=== PATIENT | female | born 1995 | race African-American/Black ===

== ENCOUNTER 2020-12-29 09:47 | Emergency (ER) | payer OTHER ==
[2020-12-29 10:51] LABS: BILIRUBIN,URINE NEGATIVE (NEGATIVE); UA COLOR YELLOW
--- NOTE | 2020-12-29 11:31 | ER.PDOC ---
General Chief Complaint: Requesting Medical Care Stated Complaint: NAUSEA Time seen by MD: 11:23 Source: patient Exam Limitations: no limitations History of Present Illness Initial Comments Nausea without vomiting for about 2 weeks. Patient took 2 home tests which came out to be positive. She wants to confirm. No diarrhea. No abdominal cramps. No vagina bleeding. Severity/Quality: moderate Past Medical History Medical History: no pertinent history Surgical History: no surgical history Family History Significant Family History: no pertinent family hx Social History Drug Use: none Constitutional: no symptoms reported Respiratory: no symptoms reported Cardiovascular: no symptoms reported Gastrointestinal: see HPI Genitourinary: no symptoms reported Musculoskeletal: no symptoms reported All Other Systems: Reviewed and Negative Physical Exam General Appearance: No Apparent Distress, WD/WN Neck: Non-Tender, Full Range of Motion, Supple, Normal Inspection Respiratory: chest non-tender, lungs clear, normal breath sounds, no respiratory distress, no accessory muscle use Cardiovascular: Normal Peripheral Pulses, Regular Rate, Rhythm, No Edema, No Gallop, No JVD, No Murmur Gastrointestinal: Normal Bowel Sounds, Non Tender, Soft Back: Normal Inspection, No CVA Tenderness, No Vertebral Tenderness Extremities: Normal Range of Motion, Non-Tender, Normal Inspection, No Pedal Edema, No Calf Tenderness, Normal Capillary Refill, Pelvis Stable 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 NML as Tested, No Motor/Sensory Deficits, Alert, Normal Mood/Affect, Oriented x 3 Skin: Normal Color, Warm/Dry Lymphatic: No Adenopathy Results/Orders Results/Orders Orders - IVELISSE SCHMIDT MD Urinalysis (12/29/20 10:30) Hcg Urine (12/29/20 10:30) Laboratory Tests Test 12/29/20 10:30 Urine Collection Type RANDOM Urine Color YELLOW Urine Appearance CLEAR Urine Bilirubin NEGATIVE (NEGATIVE) Urine Ketones 40 mg/dL (NEGATIVE) H Urine Specific [place] >=1.030 (1.005-1.030) Urine pH 5.5 (4.5-8.0) Urine Protein NEGATIVE (NEGATIVE) Urine Urobilinogen 1.0 E.U./dL (0.2) Urine Nitrate NEGATIVE (NEGATIVE) Urine Leukocyte Esterase NEGATIVE (NEGATIVE) Urine Glucose (Auto)(UA) NEGATIVE (NEGATIVE) Urine Blood TRACE-INTACT (NEGATIVE) H Urine RBC 0-2 RBC/HPF (NONE SEEN) Urine WBC 0-2 WBC/HPF (0-2) Urine Squamous Epithelial Cells MANY #/HPF (FEW) Urine Bacteria NONE SEEN (NONE SEEN) Urine Other 1+ MUCUS #/HPF Urine HCG, Qualitative POSITIVE (NEGATIVE) Progress Progress Patient has ketones in urine most likely from dehydration. I wanted to ordered IV fluids but patient declined stating that she wants to go back to work and would prefer to drink fluids at home. ER DEPART Departure Time of Disposition: 11:26 Disposition: 01 HOME, SELF-CARE Impression: Primary Impression: related nausea, antepartum Additional Impression: Dehydration Condition: Stable Referrals: PCP,UNKNOWN (PCP) PRIMARY CARE PROVIDER Additional Instructions: Baudilio DEVI Establish and follow-up with an OB doctor this week Return to ED if worsening symptoms or concerns Duration or Time Spent with Pa: 10 min Problem Qualifiers IVELISSE SCHMIDT MD December 29, 2020 11:31
[2020-12-29 11:51] VITALS: BP 123/72
[2020-12-29 11:53] VITALS: BP 123/72
== END 2020-12-29 11:44 | disposition home or self-care (01) ==
LOC: ER 09:47
DX: O26.891 Other specified pregnancy related conditions, first trimester (principal); E86.0 Dehydration; Z3A.00 Weeks of gestation of pregnancy not specified
CPT/HCPCS: 81000; 81003; 81025; 99283